=== PATIENT | female | born 1990 | race Two or more races ===

== ENCOUNTER 2019-06-25 22:52 | Emergency (ER) | payer SELFPAY ==
[~2019-06-25] VITALS: Ht 162.6 cm; Wt 77.1 kg
[2019-06-26 00:15] LABS: BILIRUBIN,URINE NEGATIVE (NEG); CLARITY,URINE CLOUDY; COLOR,URINE YELLOW; NITRITE,URINE NEGATIVE (NEG); PROTEIN,URINE NEGATIVE (NEG-TRACE)
[2019-06-26] MEDS ORDERED: ONDANSETRON ODT 4 MG TAB.RAPDIS. PO ONE (00:15)
[2019-06-26] MEDS ORDERED: FAMOTIDINE 20 MG TABLET. PO ONE (00:15)
[2019-06-26] MEDS ORDERED: LIDO:MAALOX 1:1 20 ML SINGLE DOSE. SWSW ONE (00:15)
[2019-06-26 00:21] LABS: SQUAMOUS EPITHELIAL CELL,UR MANY /LPF
[2019-06-26 00:22] LABS: AMORPHOUS SEDIMENT,UR PRESENT /HPF; BACTERIA,URINE MODERATE /HPF (0-FEW); RBC,URINE RARE /HPF (0-2); WBC,URINE 20-40 /HPF (0-4)
--- NOTE | 2019-06-26 00:58 | PHYS DOC ---
Adult General Chief Complaint Chief Complaint: ABDOMINAL PAIN HPI HPI Patient is a 28 year old female with history of peptic ulcer disease who presents with intermittent daily abdominal pain the past 2 weeks. Pain is loc ated no midepigastric region and radiates posteriorly. Her back. Pain is worst after eating and is associated with nausea nonbilious nonbloody vomiting. Patient pain is described as sharp rated moderate to severe and it is worse with palpation. She has taken ibuprofen without relief. He is not currently on antacids. No fevers chills, sweats. No flank pain, no urinary frequency urgency or burning. No constipation or diarrhea. Denies bloody stools dark tarry stools. No prior abdominal surgeries. Last menstrual period was 2 weeks ago. Patient is a nonsmoker drinks only occasional alcohol. [] Review of Systems Review of Systems Review symptoms of per history of present illness. All other review symptoms are negative. All other systems were reviewed and found to be within normal limits, except as documented in this note. Current Medications Current Medications Current Medications Medications (Trade) Dose Ordered Sig/Derek Start Time Stop Time Status Last Admin Dose Admin Famotidine (Pepcid) 20 mg 1X ONCE 06/26/19 00:15 06/26/19 00:16 DC 06/26/19 00:28 20 MG Multi-Ingredient Mouthwash/Gargle (Gi Cocktail) 20 ml 1X ONCE 06/26/19 00:15 06/26/19 00:16 DC 06/26/19 00:27 20 ML Ondansetron HCl (Zofran Odt) 4 mg 1X ONCE 06/26/19 00:15 06/26/19 00:16 DC 06/26/19 00:27 4 MG Allergies Allergies Allergies Coded Allergies Type Severity Reaction Last Updated Verified No Known Drug Allergies 06/25/19 No Physical Exam Physical Exam Constitutional: Well developed, well nourished, no acute distress, non-toxic appearance. [] HENT: Normocephalic, atraumatic, bilateral external ears normal, oropharynx moist, nose normal. [] Eyes: PERRLA, EOMI, conjunctiva normal, no discharge. [] Neck: Normal range of motion, no tenderness. [] Cardiovascular:Heart rate regular rhythm, no murmur [] Lungs & Thorax: Bilateral breath sounds clear to auscultation [] Abdomen: Bowel sounds normal, soft, epigastric pain, tenderness, negative Hartman sign.. [] Skin: Warm, dry, no erythema, no rash. [] Back: No tenderness, no CVA tenderness. [] Extremities: No tenderness. [] Neurologic: Alert and oriented X 3, normal motor function, normal sensory function, no focal deficits noted. [] Psychologic: Affect normal, judgement normal, mood normal. [] Current Patient Data Vital Signs Vital Signs Date Time Temp Pulse Resp B/P (MAP) Pulse Ox O2 Delivery O2 Flow Rate FiO2 06/25/19 23:15 97.7 92 18 136/92 (107) 96 Room Air 97.7 Lab Values Laboratory Tests Test 06/25/19 23:55 06/26/19 00:08 06/26/19 01:02 Urine Collection Type Unknown Urine Color Yellow Urine Clarity Cloudy Urine pH 7.0 Urine Specific [place] 1.025 Urine Protein Negative mg/dL (NEG-TRACE) Urine Glucose (UA) Negative mg/dL (NEG) Urine Ketones (Stick) Negative mg/dL (NEG) Urine Blood Negative (NEG) Urine Nitrite Negative (NEG) Urine Bilirubin Negative (NEG) Urine Urobilinogen Dipstick 1.0 mg/dL (0.2 mg/dL) Urine Leukocyte Esterase Small (NEG) Urine RBC Rare /HPF (0-2) Urine WBC 20-40 /HPF (0-4) Urine Squamous Epithelial Cells Many /LPF Urine Amorphous Sediment Present /HPF Urine Bacteria Moderate /HPF (0-FEW) Urine Mucus Marked /LPF POC Urine HCG, Qualitative Hcg negative (Negative) White Blood Count 10.5 x10^3/uL (4.0-11.0) Red Blood Count 4.44 x10^6/uL (3.50-5.40) Hemoglobin 10.8 g/dL (12.0-15.5) L Hematocrit 33.4 % (36.0-47.0) L Mean Corpuscular Volume 75 fL (79-100) L Mean Corpuscular Hemoglobin 24 pg (25-35) L Mean Corpuscular Hemoglobin Concent 32 g/dL (31-37) Red Cell Distribution Width 15.6 % (11.5-14.5) H Platelet Count 315 x10^3/uL (140-400) Neutrophils (%) (Auto) 69 % (31-73) Lymphocytes (%) (Auto) 24 % (24-48) Monocytes (%) (Auto) 7 % (0-9) Eosinophils (%) (Auto) 0 % (0-3) Basophils (%) (Auto) 1 % (0-3) Neutrophils # (Auto) 7.2 x10^3/uL (1.8-7.7) Lymphocytes # (Auto) 2.5 x10^3/uL (1.0-4.8) Monocytes # (Auto) 0.7 x10^3/uL (0.0-1.1) Eosinophils # (Auto) 0.0 x10^3/uL (0.0-0.7) Basophils # (Auto) 0.1 x10^3/uL (0.0-0.2) Sodium Level 138 mmol/L (136-145) Potassium Level 4.0 mmol/L (3.5-5.1) Chloride Level 104 mmol/L (98-107) Carbon Dioxide Level 27 mmol/L (21-32) Anion Gap 7 (6-14) Blood Urea Nitrogen 17 mg/dL (7-20) Creatinine 0.6 mg/dL (0.6-1.0) Estimated GFR (Cockcroft-Gault) 119.9 BUN/Creatinine Ratio 28 (6-20) H Glucose Level 104 mg/dL (70-99) H Calcium Level 8.9 mg/dL (8.5-10.1) Total Bilirubin 0.2 mg/dL (0.2-1.0) Aspartate Amino Transferase (AST) 27 U/L (15-37) Alanine Aminotransferase (ALT) 19 U/L (14-59) Alkaline Phosphatase 51 U/L (46-116) Total Protein 7.4 g/dL (6.4-8.2) Albumin 3.8 g/dL (3.4-5.0) Albumin/Globulin Ratio 1.1 (1.0-1.7) Lipase 108 U/L (73-393) Laboratory Tests 06/26/19 01:02 Laboratory Tests 06/26/19 01:02 EKG EKG [] Radiology/Procedures Radiology/Procedures [Abdominal US: Distended gallbladder with stones present. No bladder wall thickening or pericholecystic fluid.] Course & Med Decision Making Course & Med Decision Making Pertinent Labs and Imaging studies reviewed. (See chart for details) Limited provement of abdominal pain with treatment. Bladder ultrasound reviewed. We'll treat supportively with close PCP follow-up. Return precautions reviewed. Patient verbalizes understanding and agreement discharge instructions prior to departure. Dragon Disclaimer Dragon Disclaimer This electronic medical record was generated, in whole or in part, using a voice recognition dictation system. Departure Departure Impression: Primary Impression: Epigastric abdominal pain Additional Impressions: Nausea & vomiting Cholelithiases Disposition: HOME, SELF-CARE Condition: STABLE Referrals: NO PCP (PCP) Patient Instructions: Abdominal Pain (Nonspecific), Cholelithiasis, [id number], Nausea, Adult, [id number] Additional Instructions: You were evaluated in the emergency department for abdominal pain with nausea and vomiting. Lab and imaging studies were performed. The exact cause of your symptoms has not been determined but may be related to peptic ulcer disease. Please discontinue ibuprofen avoid starchy foods, spicy foods, caffeine, alcohol and eating prior to bedtime. Take newly prescribed medications as directed. Fo llow-up with your PCP in 3-5 days for reevaluation and to review call platter ultrasound results. Return to the ED if new or worsening symptoms. Scripts Metoclopramide Hcl (REGLAN) 10 Mg Tablet 1 TAB PO QID for 10 Days, #40 TAB 0 Refills before food and bedtime Prov: LUCIANO QUINN DO 06/26/19 Famotidine (PEPCID) 20 Mg Tablet 20 MG PO BID, #30 TAB Prov: LUCIANO QUINN DO 06/26/19 Problem Qualifiers LUCIANO QUINN DO Jun 26, 2019 00:58
[2019-06-26 01:11] LABS: BASO # 0.1 x10^3/uL (0.0-0.2); BASO % 1 % (0-3); EOS % 0 % (0-3); HEMATOCRIT 33.4 % (36.0-47.0); HEMOGLOBIN 10.8 g/dL (12.0-15.5); LYMPH # 2.5 x10^3/uL (1.0-4.8); LYMPH % 24 % (24-48); MEAN CORPUSCULAR HEMOGLOBIN 24 pg (25-35); MEAN CORPUSCULAR HGB CONC 32 g/dL (31-37); MEAN CORPUSCULAR VOLUME 75 fL (79-100); MONO # 0.7 x10^3/uL (0.0-1.1); MONO % 7 % (0-9); NEUT # 7.2 x10^3/uL (1.8-7.7); NEUT % 69 % (31-73); PLATELET COUNT 315 x10^3/uL (140-400); RED BLOOD COUNT 4.44 x10^6/uL (3.50-5.40); RED CELL DISTRIBUTION WIDTH 15.6 % (11.5-14.5); WHITE BLOOD COUNT 10.5 x10^3/uL (4.0-11.0)
[2019-06-26 01:18] LABS: CALCIUM 8.9 mg/dL (8.5-10.1); CREATININE 0.6 mg/dL (0.6-1.0); GFR 119.9
[2019-06-26 01:24] LABS: ALBUMIN 3.8 g/dL (3.4-5.0); ALBUMIN/GLOBULIN RATIO 1.1 (1.0-1.7); TOTAL BILIRUBIN 0.2 mg/dL (0.2-1.0); TOTAL PROTEIN 7.4 g/dL (6.4-8.2)
--- NOTE | 2019-06-26 01:48 | RAD ---
Right upper quadrant abdominal ultrasound History: Right upper quadrant pain. Comparison: None. Technique: Transabdominal ultrasound images are obtained. Findings: Visualized pancreas is unremarkable. Liver is normal in echogenicity. Right hepatic lobe measures 16.6 cm. Portal flow is hepatopedal. The gallbladder is filled with stones. No gallbladder wall thickening. Sonographic Hartman sign is negative. Common bile duct caliber is normal measuring 4 mm in diameter. The right kidney measures 11.1 cm in length. Normal cortical echotexture. No hydronephrosis. IVC is unremarkable. IMPRESSION: Cholelithiasis. Electronically signed by: Broderick Blackman MD (06/26/2019 1:45 AM) [id number]
[2019-06-26] MEDS ORDERED: METO10TA81 PO (01:54)
[2019-06-26] MEDS ORDERED: FAMO-63 PO (01:54)
[2019-06-26] MEDS ORDERED: HYDR-2759 PO (01:57)
[2019-06-26 02:48] VITALS: BP 120/76
== END 2019-06-26 02:48 | disposition home or self-care (01) ==
LOC: ER 22:52
DX: K80.20 Calculus of gallbladder without cholecystitis without obstruction (principal); Z87.11 Personal history of peptic ulcer disease
CPT/HCPCS: 36415; 76705; 80053; 81001; 81025; 83690; 85025; 87086; 99284; Q0162